=== PATIENT | male | born 1970 | race Hispanic/Latino ===

== ENCOUNTER 2018-03-01 20:11 | Emergency (ER) | payer BC, OTHER ==
[~2018-03-01] VITALS: Ht 167.6 cm; Wt 86.6 kg
[~2018-03-01 20:11] MED LIST: CLINDAMYCIN HC300 MG PO; ENALAPRIL MALEA20 MG PO; HYDROCHLOROTH12.5 M1 PO; LORTAB 7.5-5001 EACH PO; PRAVASTATIN SOD40 MG PO; SERTRALINE HCL25 MG PO; SULFAMETHOXAZO1 EAC1 PO
[2018-03-01] MEDS ORDERED: EPINEPHRINE 0.3 MG/0.3 ML PEN.INJCTR SC STA (20:14)
[2018-03-01] MEDS ORDERED: FAMOTIDINE 20 MG/2 ML VIAL IV STA (20:14)
[2018-03-01] MEDS ORDERED: DIPHENHYDRAMINE HCL INJ 50 MG/ML VIAL IV ONE (20:15)
[2018-03-01] MEDS ORDERED: METHYLPREDNISOLONE SOD SUCC 125 MG/2ML VIAL IV ONE (20:15)
[2018-03-01] MEDS ORDERED: DIPHENHYDRAMINE HCL INJ 50 MG/ML VIAL ONE (20:16)
[2018-03-01] MEDS ORDERED: FAMOTIDINE 20 MG/2 ML VIAL IV ONE (20:16)
[2018-03-01] MEDS ORDERED: METHYLPREDNISOLONE SOD SUCC 125 MG/2ML VIAL ONE (20:16)
[2018-03-01] MEDS ORDERED: EPINEPHRINE HCL INJ 1 MG/ML AMP ONE (20:38)
[2018-03-01 20:48] LABS: BASOPHILS % 0.4 % (0.0-1.0); EOSINOPHILS # (AUTO) 0.1 (0.0-0.4); EOSINOPHILS % 1.7 % (0.0-6.0); HEMATOCRIT 40.2 % (38.2-49.6); HEMOGLOBIN 13.7 g/dL (14.0-18.0); LYMPHOCYTES # (AUTO) 2.4 (1.0-3.2); LYMPHOCYTES % 35.4 % (18.0-39.1); MEAN CORPUSCULAR HEMOGLOBIN 30.1 pg (28-32); MEAN CORPUSCULAR HGB CONC 34.1 g/dL (31-35); MEAN CORPUSCULAR VOLUME 88.4 fL (81-99); MONOCYTES # (AUTO) 0.6 (0.2-0.8); MONOCYTES % 9.3 % (4.4-11.3); NEUTROPHILS # (AUTO) 3.7 (2.1-6.9); NEUTROPHILS % 53.1 % (38.7-80.0); PLATELET COUNT 210 x10e3/uL (140-360); RED BLOOD COUNT 4.55 x10e6/uL (4.3-5.7); RED CELL DISTRIBUTION WIDTH 13.2 % (11.7-14.4)
[2018-03-01 21:00] LABS: INR 0.99; PARTIAL THROMBOPLASTIN TIME 27.3 seconds (23.8-35.5)
[2018-03-01 21:10] LABS: ALANINE AMINOTRANSFERASE 20 IU/L (0-55); ALBUMIN 3.7 g/dL (3.5-5.0); ALBUMIN/GLOBULIN RATIO 1.4 (0.8-2.0); ALKALINE PHOSPHATASE 89 IU/L (40-150); BLOOD UREA NITROGEN 16 mg/dL (7-26); BUN/CREATININE RATIO 16 (6-25); CALCIUM 9.2 mg/dL (8.4-10.2); CARBON DIOXIDE 23 mmol/L (22-29); CHLORIDE 107 mmol/L (98-107); CREATININE, SERUM 0.99 mg/dL (0.72-1.25); EST GLOMERULAR FILTRATION RATE > 60 ML/MIN (60-); GLUCOSE 99 mg/dL (74-118); SODIUM 140 mmol/L (136-145)
--- NOTE | 2018-03-01 22:20 | Diagnostic Imaging Report ---
CHEST SINGLE (PORTABLE), 03/01/2018 8:14 PM Technique: CHEST SINGLE (PORTABLE) Comparison: None available. Clinical history: Allergic reaction Findings: See Impression Impression: 1. Mildly enlarged cardiomediastinal silhouette, accentuated by portable technique and low volumes. 2. Low lung volumes with bibasilar vascular crowding/atelectasis. No effusion or pneumothorax. Signed by: Dr Nidhi Charles MD on 03/01/2018 10:15 PM
[2018-03-01] MEDS ORDERED: SODIUM CHLORIDE 0.9% 250ML 250 ML ONE (22:33)
[2018-03-02 00:26] VITALS: BP 102/70
[2018-03-02] MEDS ORDERED: medro dose pack (00:30)
== END 2018-03-02 00:44 | disposition home or self-care (01) ==
LOC: ER 20:11
DX: T78.3XXA Angioneurotic edema, initial encounter (principal)
CPT/HCPCS: 36415; 71045; 80053; 85025; 85610; 85730; 86850; 86900; 93005; 96374; 99284; J0171; J1200; J2930; J7050; P9017

== ENCOUNTER 2020-06-05 06:07 | Emergency (ER) | payer OTHER ==
[~2020-06-05] VITALS: Ht 167.6 cm; Wt 86.6 kg
[~2020-06-05 06:07] MED LIST changes: +medro dose pack
[2020-06-05] MEDS ORDERED: LIDOCAINE JELLY 2% 10ML URO-JET TOP ONE (06:15)
[2020-06-05 06:37] LABS: CLARITY,URINE CLEAR (CLEAR); COLOR,URINE YELLOW (YELLOW)
[2020-06-05 06:38] LABS: KETONES,URINE NEGATIVE (NEGATIVE); LEUKOCYTE ESTERASE ,URINE NEGATIVE (NEGATIVE); NITRITE,URINE NEGATIVE (NEGATIVE); PROTEIN,URINE DIPSTICK NEGATIVE (NEGATIVE); URINE UROBILINOGEN 0.2 mg/dL (0.2 - 1)
[2020-06-05 06:49] LABS: BACTERIA,URINE RARE /HPF; EPITHELIAL CELLS,URINE FEW /LPF
== END 2020-06-05 07:19 | disposition home or self-care (01) ==
LOC: ER 06:14
DX: R33.9 Retention of urine, unspecified (principal); R30.0 Dysuria; I10 Essential (primary) hypertension; E11.9 Type 2 diabetes mellitus without complications; E78.5 Hyperlipidemia, unspecified; F32.9 Major depressive disorder, single episode, unspecified
CPT/HCPCS: 51700; 81001; 87086; 99283